=== PATIENT | male | born 1960 | race Caucasian/White ===

== ENCOUNTER → 2020-05-13 01:41 | Outpatient (CLI) | payer OTHER, SELFPAY ==
[2020-05-13 19:35] LABS: SARS-CoV-2 RNA PCR Negative
== END ==
PROVIDERS: Visit Provider Otolaryngology
DX: Z01.812 Encounter for preprocedural laboratory examination (principal); Z20.822 Contact with and (suspected) exposure to COVID-19
CPT/HCPCS: C9803; U0003; U0005

== ENCOUNTER 2020-05-16 01:15 | Day surgery (SDC) | payer OTHER, SELFPAY ==
[2020-05-13 09:40] VITALS: BMI 34.7
[2020-05-16] VITALS (7 sets, daily range): BP systolic 102–149; BP diastolic 64–77; PULSE 59–76; RESP 12–18; TEMP 36.5–36.8; O2SAT 94–98
--- NOTE | 2020-05-16 05:51 | PM.HPGS ---
History of Present Illness History of Present Illness Consent: Risks, benefits, and alternatives have been discussed and questions answered. Patient agrees to proceed with procedure. Chief complaint: left intranasal lesion Narrative: Marek An is a 59 year old male as a polyp and/or lesion on the left side causing his nosebleeds Review of Systems Review of Systems: All systems reviewed & are unremarkable except as noted in HPI and below PMFSH Family History Family History Mother Diabetes mellitus Father Hypertension Social History Social History Smoking status: Never smoker Alcohol intake: current Drinks per week: 2 Substance use: never Substance use type: does not use Living arrangements: with family Gender identity (if verbalized by the patient): Male Spiritual care concerns: No Meds Home Medications and Allergies Home Medications Medication Instructions Recorded Confirmed Type No Home Medications 05/13/20 05/13/20 History Allergies Allergy/AdvReac Type Severity Reaction Status Date / Time No Known Allergies Allergy Verified 05/13/20 09:41 Assessment and Plan Additional Plan plan is to remove the nodule intranasal to stop his n
--- NOTE | 2020-05-16 05:53 | WPDHPUPDATE1 ---
History and Physical Update Update Date/Time: 05/16/20 05:53 History and Physical has been reviewed, including an updated exam of the patient. There are NO changes in the patient's condition. Risks, benefits, and alternatives have been discussed and questions answered. Patient agrees to proceed with procedure.
[2020-05-16] MEDS: ACETAMINOPHEN 500 MG TABLET 1000 MG PO (08:01)
[2020-05-16] MEDS: LACTATED RINGERS 1,000 ML 30 ML IV CONT (08:05)
--- NOTE | 2020-05-16 08:35 | P.PNAN_ITS ---
Anes - Initial Pre Proc Eval Procedure: Operation Date: 05/16/20 10:00 Proposed Procedures p Excision Left Intranasal Lesion - Yo Araujo MD Date/Time: 05/16/20 08:35 Surgeon: Yo Araujo MD Pre Op Diagnosis: left intranasal lesion Patient Data Age: 59 Gender: M Height: 5 ft 10 in Weight: 115.3 kg Last Vital Signs Temp 97.7 F 05/16/20 07:45 Pulse 76 05/16/20 07:45 Resp 18 05/16/20 07:45 BP 149/77 H 05/16/20 07:45 Pulse Ox 98 05/16/20 07:45 Allergies Allergy/AdvReac Type Severity Reaction Status Date / Time mold Allergy Itching,SNEEZING, Verified 05/16/20 08:32 SINUS CONGESTION Home Medications Medication Instructions Recorded Confirmed Type No Home Medications 05/13/20 05/16/20 History Patient hx anesthesia problems: none Family hx anesthesia problems: none [facility] Past Medical History Medical History (Updated 05/16/20 @ 08:36 by Manfred Medrano MD) Obesity Family History Family History Mother Diabetes mellitus Father Hypertension Social History Social History Smoking status: Never smoker Alcohol intake: current Drinks per week: 2 Substance use: never Substance use type: does not use Living arrangements: with family Gender identity (if verbalized by the patient): Male Spiritual care concerns: No Anes - Eval Final PreProcedure Day of Procedure 05/16/20 08:35 Patient weight: obese Heart: regular rate and rhythm Lungs: clear to auscultation Airway: Mallampati scale class III Neurological: alert and oriented Last oral intake: >/= 8 hours ASA classification: III Emergent: no Anesthetic plan: proceed Anesthesia type and monitoring: general ETT and standard monitoring Informed Consent: The patient's anesthetic plan and its attendant risks and benefits were discussed with the patient/family/POA. Questions were solicited and answers provided to the satisfaction of the patient/family/POA.
--- NOTE | 2020-05-16 09:00 | PM.PROC ---
Procedure Note - Detailed Date of procedure: 05/16/20 Pre-op diagnosis: left intranasal lesion Post-op diagnosis: same Procedure performed: Excision of left intranasal lesion Description of procedure: Patient was prepped general anesthesia was injected xylocaine with adrenaline the lesion was removed in the base cauterized Anesthesia: GLMA Surgeon: Yo Araujo MD Estimated blood loss (mL): 0 Drains: No Packing: No Pathology: yes Complications: No immediate complications Condition: stable Disposition: PACU Findings: Intranasal lesion excised in the base cauterized
[2020-05-16] MEDS: LIDO 1%/EPINEPHRINE/PF 1:200,000 30 ML VIAL XX (09:01)
== END 2020-05-16 10:33 | disposition home or self-care (01) ==
PROVIDERS: PCP Internal Medicine; Visit Provider Otolaryngology
PROC: (CPT 30117; principal; 2020-05-16 10:00)
DX: J34.89 Other specified disorders of nose and nasal sinuses (principal); E66.9 Obesity, unspecified; Z68.36 Body mass index [BMI] 36.0-36.9, adult
CPT/HCPCS: 30117; 88305; A9270; C9803; J1100; J2250; J2405; J2704; J3010; J7120; U0003; U0005